=== PATIENT | female | born 1935 | race Hispanic/Latino ===

== ENCOUNTER 2023-05-15 21:46 | Emergency (ER) | payer OTHER, MEDICARE | END 2023-05-15 23:04 | disposition home or self-care (01) | LOC: ERS 21:46 | DX: S00.93XA Contusion of unspecified part of head, initial encounter (principal); E11.9 Type 2 diabetes mellitus without complications; I10 Essential (primary) hypertension; E78.00 Pure hypercholesterolemia, unspecified; W01.198A Fall on same level from slipping, tripping and stumbling with subsequent striking against other object, initial encounter | CPT/HCPCS: 70450; 72125 ==

== ENCOUNTER 2023-10-02 15:17 | Observation (INO) | payer MEDICARE ==
[2023-10-02 15:56] LABS: #Eosinphils 0.2 thou/uL (0.0-0.7); #Monocytes 0.6 thou/uL (0.11-0.59); #Neutrophils 4.3 thou/uL (1.40-6.50); %Basophils 0.5 % (0.0-1.0); %Eosinophils 2.7 % (0.0-10.0); %Lymphocytes 18.8 % (21.0-51.0); %Neutrophils 67.5 % (42.0-75.0); Hematocrit 23.6 % (36.0-47.0); Hemoglobin 7.4 g/dL (12.0-16.0); Mean Corpuscular HGB CONC 31.4 g/dL (32.0-36.0); Mean Corpuscular Hemoglobin 23.4 pg (27.0-31.0); Mean Corpuscular Volume 74.7 fl (78.0-98.0); Mean Platelet Volume 9.2 fL (7.4-10.4); Platelet Count 281 10x3/uL (130-400); RBC Distribution Width 17.3 % (11.5-14.5); Red Blood Cell (RBC) Count 3.16 mill/uL (4.20-5.40); White Blood Cell (WBC) Count 6.3 10x3/uL (4.8-10.8)
[2023-10-02 16:17] LABS: ALT (SGPT) 42 U/L (8-55); AST (SGOT) 50 U/L (5-34); Albumin 3.7 g/dL (3.4-4.8); Alkaline Phosphatase 132 U/L (40-110); Anion Gap 16 mmol/L (10-20); BUN (Urea Nitrogen) 35 mg/dL (9.8-20.1); Bilirubin, Total 0.4 mg/dL (0.2-1.2); Calc. Creatinine Clearance 0 mL/min (70-130); Calcium 8.6 mg/dL (7.8-10.44); Carbon Dioxide 24 mmol/L (23-31); Chloride 99 mmol/L (98-107); Estimated GFR 34; Globulin 3.6 g/dL (2.4-3.5); Glucose 186 mg/dL (83-110); Potassium 4.6 mmol/L (3.5-5.1); Protein, Total 7.3 g/dL (5.8-8.1); Sodium 134 mmol/L (136-145)
[2023-10-02 16:20] LABS: Troponin I Less than 0.010 ng/mL (< 0.028)
[2023-10-02 16:24] LABS: Anisocytosis SLIGHT = 6-15 cells (100X) (0-5/hpf); Burr Cells SLIGHT = 2-5 cells (100X) (0-1/hpf); Macrocytosis SLIGHT = 6-15 cells (100X) (0-5/hpf); Microcytosis SLIGHT = 6-15 cells (100X) (0-5/hpf); Platelet Adequacy Comment Platelets Normal
[2023-10-02] MEDS ORDERED: Dextrose 50% Abboject 50 ML SYRINGE SLOW IVP PRN (17:26)
[2023-10-02] MEDS ORDERED: Ondansetron PF 4 MG/2 ML Vial IVP PRN (17:26)
[2023-10-02] MEDS ORDERED: HumaLOG 300 UNITS/3 ML VIAL SC PRN ×2 (17:26)
[2023-10-02] MEDS ORDERED: Acetaminophen 325 MG TAB PO PRN (17:26)
[2023-10-02] MEDS ORDERED: Dextrose 5% in Water 1,000 ML IV PRN (17:26)
[2023-10-02] MEDS ORDERED: Glucagon 1 MG/ML KIT IM PRN (17:26)
[2023-10-02] MEDS ORDERED: Digoxin 0.125 MG TAB PO SCH (17:30)
[2023-10-02 17:48] LABS: Iron 16 ug/dL (50-170); Iron Binding Capacity, Total 381 mcg/dL (265-497)
[2023-10-02 17:51] LABS: INR-International Normal Ratio 1.4; Prothrombin Time 17.3 sec (12.0-14.7)
[2023-10-02 17:52] LABS: PTT 33.6 sec (22.9-36.1)
[2023-10-02] MEDS: Lactated Ringer's 1,000 ML IV SCH (19:06)
[2023-10-02 19:59] LABS: Troponin I 0.011 ng/mL (< 0.028)
[2023-10-02] MEDS ORDERED: Apixaban 5 MG TAB PO SCH (21:00)
[2023-10-02] MEDS ORDERED: Apixaban 2.5 MG TAB PO SCH (21:00)
[2023-10-03 01:51] LABS: #Eosinphils 0.2 thou/uL (0.0-0.7); #Monocytes 0.6 thou/uL (0.11-0.59); #Neutrophils 4.3 thou/uL (1.40-6.50); %Basophils 0.4 % (0.0-1.0); %Eosinophils 2.6 % (0.0-10.0); %Lymphocytes 25.9 % (21.0-51.0); %Monocytes 8.7 % (0.0-10.0); %Neutrophils 62.1 % (42.0-75.0); Hemoglobin 8.3 g/dL (12.0-16.0); Mean Corpuscular HGB CONC 31.9 g/dL (32.0-36.0); Mean Corpuscular Hemoglobin 23.7 pg (27.0-31.0); Mean Corpuscular Volume 74.3 fl (78.0-98.0); Mean Platelet Volume 8.6 fL (7.4-10.4); Platelet Count 269 10x3/uL (130-400); RBC Distribution Width 17.7 % (11.5-14.5); White Blood Cell (WBC) Count 6.9 10x3/uL (4.8-10.8)
[2023-10-03 02:20] LABS: Troponin I Less than 0.010 ng/mL (< 0.028)
[2023-10-03 02:28] LABS: Anion Gap 15 mmol/L (10-20); BUN (Urea Nitrogen) 25 mg/dL (9.8-20.1); Calc. Creatinine Clearance 35 mL/min (70-130); Calcium 8.4 mg/dL (7.8-10.44); Carbon Dioxide 23 mmol/L (23-31); Chloride 103 mmol/L (98-107); Estimated GFR 70; Glucose 110 mg/dL (83-110); Potassium 3.7 mmol/L (3.5-5.1); Sodium 137 mmol/L (136-145)
[2023-10-03] MEDS: Lactated Ringer's 1,000 ML IV SCH (06:13)
[2023-10-03] MEDS: dilTIAZem CD 180 MG CAP PO SCH (08:27)
[2023-10-03] MEDS: Enoxaparin 40 MG (0.4 mL) SYRINGE SC SCH ×2 (08:46→19:42)
[2023-10-03] MEDS ORDERED: Aspirin 81 mg Enteric Coated Tablet PO SCH (09:00)
[2023-10-03] MEDS ORDERED: Metoprolol Tartrate 25 MG TAB PO SCH (11:00)
[2023-10-03] MEDS ORDERED: Iron, Sodium Ferric Gluconate 125 MG in Sodium Chloride 0.9% 100 ML IVPB SCH (12:00)
[2023-10-03] MEDS ORDERED: Atorvastatin Calcium 40 MG TAB PO SCH (21:00)
[2023-10-04 05:11] LABS: Digoxin 0.29 ng/mL (0.8-2.0)
[2023-10-04] MEDS ORDERED: Ferrous Sulfate 325 MG TAB PO SCH (08:00)
[2023-10-04 08:05] LABS: #Eosinphils 0.2 thou/uL (0.0-0.7); #Monocytes 0.7 thou/uL (0.11-0.59); #Neutrophils 3.3 thou/uL (1.40-6.50); %Basophils 0.6 % (0.0-1.0); %Eosinophils 2.8 % (0.0-10.0); %Lymphocytes 21.9 % (21.0-51.0); %Monocytes 13.5 % (0.0-10.0); Hematocrit 26.1 % (36.0-47.0); Hemoglobin 8.2 g/dL (12.0-16.0); Mean Corpuscular HGB CONC 31.4 g/dL (32.0-36.0); Mean Corpuscular Hemoglobin 24.1 pg (27.0-31.0); Mean Corpuscular Volume 76.8 fl (78.0-98.0); Platelet Count 282 10x3/uL (130-400); White Blood Cell (WBC) Count 5.4 10x3/uL (4.8-10.8)
[2023-10-04 08:52] LABS: Anion Gap 12 mmol/L (10-20); BUN (Urea Nitrogen) 16 mg/dL (9.8-20.1); Calc. Creatinine Clearance 38 mL/min (70-130); Calcium 8.1 mg/dL (7.8-10.44); Carbon Dioxide 25 mmol/L (23-31); Chloride 102 mmol/L (98-107); Estimated GFR 77; Glucose 93 mg/dL (83-110); Potassium 3.9 mmol/L (3.5-5.1); Sodium 135 mmol/L (136-145)
[2023-10-04] MEDS: Enoxaparin 40 MG (0.4 mL) SYRINGE SC SCH (08:56)
[2023-10-04] MEDS: dilTIAZem CD 180 MG CAP PO SCH (08:57)
[2023-10-04 11:59] VITALS: BP 130/62; TEMP 98.3
[2023-10-04] MEDS ORDERED: Apixaban 2.5 MG TAB PO SCH (21:00)
== END 2023-10-04 12:28 | disposition home or self-care (01) ==
LOC: ERS 15:17 → ERHOLD 17:26 → 2SW 21:24
PROVIDERS: ADMIT Family Medicine; ATTEND Internal Medicine
DX: R55 Syncope and collapse (principal); I48.20 Chronic atrial fibrillation, unspecified; D50.9 Iron deficiency anemia, unspecified; I10 Essential (primary) hypertension; E11.9 Type 2 diabetes mellitus without complications; Z86.73 Personal history of transient ischemic attack (TIA), and cerebral infarction without residual deficits; Z79.84 Long term (current) use of oral hypoglycemic drugs; Z79.01 Long term (current) use of anticoagulants; Z79.899 Other long term (current) drug therapy
CPT/HCPCS: 36430; 71045; 80048 ×2; 80053; 80162; 82728; 82962 ×3; 83540; 83550; 84484 ×3; 85025 ×3; 85610; 85730; 86850; 86900; 86901; 86920; 93005; 93306; 96365; 96372 ×2; 99285; G0378 ×3; P9016; 36415; 36416; 82274; J1650; J2916; J3490; J7120

== ENCOUNTER 2023-10-14 15:33 | Emergency (ER) | payer MEDICARE ==
[2023-10-14 16:51] LABS: #Eosinphils 0.1 thou/uL (0.0-0.7); #Monocytes 0.6 thou/uL (0.11-0.59); #Neutrophils 4.2 thou/uL (1.40-6.50); %Basophils 0.7 % (0.0-1.0); %Eosinophils 0.8 % (0.0-10.0); %Lymphocytes 18.6 % (21.0-51.0); %Monocytes 10.3 % (0.0-10.0); %Neutrophils 69.1 % (42.0-75.0); Hematocrit 26.6 % (36.0-47.0); Hemoglobin 8.4 g/dL (12.0-16.0); Mean Corpuscular HGB CONC 31.6 g/dL (32.0-36.0); Mean Corpuscular Hemoglobin 24.3 pg (27.0-31.0); Mean Corpuscular Volume 77.1 fl (78.0-98.0); Mean Platelet Volume 9.1 fL (7.4-10.4); Platelet Count 271 10x3/uL (130-400); RBC Distribution Width 21.7 % (11.5-14.5); Red Blood Cell (RBC) Count 3.45 mill/uL (4.20-5.40); White Blood Cell (WBC) Count 6.1 10x3/uL (4.8-10.8)
[2023-10-14 17:15] LABS: ALT (SGPT) 61 U/L (8-55); AST (SGOT) 77 U/L (5-34); Albumin 3.6 g/dL (3.4-4.8); Alkaline Phosphatase 109 U/L (40-110); Anion Gap 12 mmol/L (10-20); BUN (Urea Nitrogen) 24 mg/dL (9.8-20.1); Bilirubin, Total 0.4 mg/dL (0.2-1.2); Calc. Creatinine Clearance 0 mL/min (70-130); Calcium 8.5 mg/dL (7.8-10.44); Carbon Dioxide 24 mmol/L (23-31); Chloride 95 mmol/L (98-107); Estimated GFR 68; Globulin 3.4 g/dL (2.4-3.5); Glucose 134 mg/dL (83-110); Magnesium 1.8 mg/dL (1.6-2.6); Potassium 3.9 mmol/L (3.5-5.1); Sodium 127 mmol/L (136-145)
== END 2023-10-14 18:00 | disposition home or self-care (01) ==
LOC: ERS 15:33
DX: R00.1 Bradycardia, unspecified (principal); E11.9 Type 2 diabetes mellitus without complications; I10 Essential (primary) hypertension; E78.00 Pure hypercholesterolemia, unspecified; Z79.899 Other long term (current) drug therapy; Z79.01 Long term (current) use of anticoagulants; Z79.82 Long term (current) use of aspirin; Z86.73 Personal history of transient ischemic attack (TIA), and cerebral infarction without residual deficits
CPT/HCPCS: 36415; 71045; 80053; 83735; 83880; 84484; 85025; 93005